=== PATIENT | male | born 1955 | race Caucasian/White ===

== ENCOUNTER 2016-10-17 12:52 | Emergency (ER) | payer BC ==
[~2016-10-17] VITALS: Ht 182.9 cm; Wt 110.5 kg
[~2016-10-17 12:52] MED LIST: ASCORBIC ACID500 M3 PO; CIPRO500 MG PO; COUMADIN3 MG PO; COUMADIN4 MG PO; FLAGYL250 MG PO; GLUCOSAMINE CH1 EAC2 PO; HYDROCODON-ACE1 EAC7 PO; LISINOPRIL20 MG PO; LORCET 5-325 M1 EACH PO; LOVENOX100 MG/1 M SC; METOPROLOL SUCC25 MG PO; METRONIDAZOLE500 MG PO; NORCO 5/3251 TABLET PO; OMEPRAZOLE40 M1 PO; PRAVASTATIN SOD40 MG PO; TAMSULOSIN HCL0.4 MG PO
[2016-10-17 13:56] LABS: HEMATOCRIT 49.1 % (38.0-50.0); MCH 32.2 PG (29.0-34.0); MCHC 35.2 G/DL (30.0-36.0); MCV 91.3 FL (86-99); MEAN PLAT.VOLUME 9.8 uM^3 (9.0-12.4); PLATELET COUNT 201 K/uL (156-360); RBC DIS.WIDTH-CV 13.7 % (11.8-14.6); RBC DIS.WIDTH-SD 45.3 % (39-53); RED BLOOD COUNT 5.38 M/uL (4.00-5.50); WHITE BLOOD COUNT 6.5 K/uL (4.1-10.2)
[2016-10-17 14:11] LABS: ANION GAP 16 MEQ/L (2-14); CHLORIDE 103 MEQ/L (99-109); POTASSIUM 4.3 MEQ/L (3.7-5.4); SAMPLE HEMOLYSIS CHECK 0; SAMPLE ICTERIC CHECK 0; SAMPLE LIPEMIA CHECK 0; SODIUM 141 MEQ/L (136-147)
[2016-10-17 14:17] LABS: GFR ESTIMATE (CALCULATED) > 59 mL/min/; GLUCOSE 104 mg/dL (70-99); UREA NITROGEN (BUN) 20 mg/dL (9-23)
[2016-10-17 14:21] LABS: TROP-I INTERPRETATION NEGATIVE; TROPONIN-I < 0.01 ng/mL (0.0-0.30)
[2016-10-17 16:38] VITALS: BP 127/90
== END 2016-10-17 16:42 | disposition home or self-care (01) ==
LOC: EME 12:52
DX: R07.9 Chest pain, unspecified (principal); I48.92 Unspecified atrial flutter; I10 Essential (primary) hypertension; Z79.01 Long term (current) use of anticoagulants; Z87.891 Personal history of nicotine dependence
CPT/HCPCS: 71020; 80048; 84484; 85027; 93005; 99281; 99285